=== PATIENT | male | born 1970 | race Caucasian/White ===

== ENCOUNTER 2022-04-29 06:30 | Day surgery (SDC) | payer OTHER ==
[~2022-04-29] VITALS: Ht 188 cm; Wt 134.0 kg
[~2022-04-29 06:30] MED LIST: ALLEGRA-D 24 H1 EACH PO; COZAAR25 MG PO; DEXAMETHASONE4 MG PO; DULOXETINE HCL60 MG PO; EFFEXOR XR37.5 MG PO; GABAPENTIN300 MG PO; HYDROCHLOROTHIA25 MG PO; LIPITOR20 MG PO; OMEPRAZOLE20 MG PO; PERCOCET 5-3251 EACH PO; SUDOGEST60 MG PO
--- NOTE | 2022-04-30 08:21 | OR ---
[facility] [address], [place] [address] Signed DATE OF OPERATION: 04/29/2022 SURGEON: Boo Phelps MD PREOPERATIVE DIAGNOSIS: Colon screening. POSTOPERATIVE DIAGNOSES: 1. Sigmoid diverticulosis and colonic wall edema of right colon and rectum. 2. Internal hemorrhoids and external hemorrhoids. 3. Thrombosed external hemorrhoid. PROCEDURE: Total colonoscopy to cecum with biopsies. ANESTHESIA: Intravenous sedation; fentanyl 100 mcg and Versed 6 mg. INDICATION: This 52-year-old white man is a patient of GABBY Goodwin. He is here for screening colonoscopy. He denies symptoms of bleeding, diarrhea, or constipation. He has no family history of colon cancer. He understands the risks and benefits of colonoscopy including the risk of bleeding, infection, perforation, and so forth and wished to proceed. FINDINGS: The prep was good. Complete colonoscopy was undertaken to the cecum without question. He had scattered diverticula of the sigmoid colon. He had internal hemorrhoids as well as external hemorrhoids and one of the external hemorrhoids had thrombosis but not severely inflamed. DESCRIPTION OF PROCEDURE: The patient was brought to the endoscopy suite and placed in the lateral decubitus position, given intravenous sedation to the point of slurred speech and nystagmus with full cardiopulmonary monitoring. Digital rectal examination detected a firm nodule within the anal canal. The scope was advanced into the rectum and ultimately to the cecum. Ileocecal valve and appendiceal orifice were normal. Scope was withdrawn and examination throughout showed no sign of abnormality other than sigmoid diverticula. Retroflexed view of the rectum showed internal hemorrhoids. Careful withdrawal of the scope through the anal canal did confirm an external hemorrhoid with thrombosis, no Electronically Signed By: BOO PHELPS MD 04/30/22 0821 PATIENT NAME: ANALI MAE OPERATIVE REPORT DATE OF : 74 REPORT #: [id number] PHYSICIAN: BOO PHELPS MD PCP: ARACELI LOPEZ PA-C REPORT IS CONFIDENTIAL AND NOT TO BE RELEASED WITHOUT AUTHORIZATION [facility] [address], [place] [address] Signed doubt accounting for the physical exam. The scope was removed and the patient was taken to the recovery room in good condition. CONCLUDING DIAGNOSES: 1. Diverticular changes and mild edema of the colon (biopsied). 2. Internal and external hemorrhoids, one external hemorrhoid thrombosed, appears uninflamed currently. PLAN: For the short term, would recommend hot soaks of the anorectum to allow clearance of the external thrombosis as it is likely past time for which a thrombectomy could be undertaken. Recommend high-fiber diet. Repeat colonoscopy in 10 years, sooner if clinically indicated. He will return to the ongoing care of PA. Buddy MD MIKE Collier/NEREYDA /[id number] cc: Araceli Lopez PA-C Copies: ARACELI LOPEZ PA-C ~ Electronically Signed By: BOO PHELPS MD 04/30/22 0821 PATIENT NAME: ANALI MAE MELINA OPERATIVE REPORT DATE OF : 74 REPORT #: [id number] PHYSICIAN: BOO PHELPS MD PCP: ARACELI LOPEZ PA-C REPORT IS CONFIDENTIAL AND NOT TO BE RELEASED WITHOUT AUTHORIZATION
--- NOTE | 2022-05-02 10:34 | PATH ---
[facility] [address] [place], [place] [address] Signed SPECIMEN(S): A RIGHT COLON BIOPSY SPECIMEN(S): B SIGMOID COLON BIOPSY SPECIMEN(S): C RECTAL BIOPSY SPECIMEN SOURCE: A. RIGHT COLON BIOPSY B. SIGMOID COLON BIOPSY C. RECTAL BIOPSY CLINICAL HISTORY: Screening colonoscopy, edema of colon wall, hemorrhoids. FINAL PATHOLOGIC DIAGNOSIS: A. Colon, right, biopsies: - No significant histopathology. B. Colon, sigmoid, biopsies: - No significant histopathology. C. Rectum, biopsy: - Mucosal xanthomas. COMMENT: Regarding specimens A and B, the sections from the specimen contain architecturally normal colonic mucosa without crypt distortion. There is no acute or chronic inflammation. There is no evidence of microscopic colitis. There are no abnormal organisms or infiltrates. There are no polyps or neoplasms. Regarding specimen C, mucosal xanthomas consist of collections of macrophages in the lamina propria. They often contain mucin. These are nonspecific markers of old injury. In the rectum, there may have been previous areas of inflammation or prolapse. TWK:caw:C2NR MICROSCOPIC EXAMINATION: Histologic sections of all submitted blocks are examined by light microscopy. These findings, together with the gross examination, support the pathologic diagnosis. GROSS DESCRIPTION: Three specimens are received in three containers, labeled "RL." A. The specimen, labeled "RL, 1," and designated on the requisition "right colon biopsy," is received in formalin and consists of three rosario soft tissue PATIENT NAME: ANALI MAE MELINA PATHOLOGY DATE OF : 74 REPORT #: [id number] PHYSICIAN: ROJELIOStevia First PRESTON PCP: MAMADOU LEA PA-C REPORT IS CONFIDENTIAL AND NOT TO BE RELEASED WITHOUT AUTHORIZATION [facility] [address] [place], [place] [address] Signed fragments that measure 0.2-0.4 cm in greatest dimension. The specimen is entirely submitted in cassette (A1). B. The specimen, labeled "RL, 2," and designated on the requisition "sigmoid biopsies," is received in formalin and consists of two rosario soft tissue fragments that measure 0.3 and 0.4 cm in greatest dimension. The specimen is entirely submitted in cassette (B1). C. The specimen, labeled "RL, 3," and designated on the requisition "rectum biopsy," is received in formalin and consists of two rosario soft tissue fragments that measure 0.1 and 0.3 cm in greatest dimension. The specimen is entirely submitted in cassette (C1). AI (under the direct supervision of a pathologist) The Gross Description was prepared using a voice recognition system. The report was reviewed for accuracy; however, sound-alike word errors, addition and/or deletions may occur. If there is any question about this report, please contact Client Services. PERFORMING LABORATORY: The technical component was performed by [facility], [address] [place] [id number] (CLIA# [id number]). The professional interpretation was performed by [facility], [facility], [address] [place] [address] (CLIA#: [id number]). Diagnostician: Ruddy Oropeza MD Pathologist Electronically Signed 05/02/2022 Copies: ~ PATIENT NAME: ANALI MAE PATHOLOGY DATE OF : 74 REPORT #: [id number] PHYSICIAN: [facility] PCP: MAMADOU LEA PA-C REPORT IS CONFIDENTIAL AND NOT TO BE RELEASED WITHOUT AUTHORIZATION
== END 2022-04-29 09:10 | disposition home or self-care (01) ==
LOC: OPS 06:30 → DS 06:30 → OPS 07:30
PROVIDERS: ATTEND Surgery
PROC: 0DBN8ZX Excision of Sigmoid Colon, Via Natural or Artificial Opening Endoscopic, Diagnostic (ICD-10-PCS; 2022-04-29)
PROC: 0DBP8ZX Excision of Rectum, Via Natural or Artificial Opening Endoscopic, Diagnostic (ICD-10-PCS; 2022-04-29)
PROC: 0DBK8ZX Excision of Ascending Colon, Via Natural or Artificial Opening Endoscopic, Diagnostic (ICD-10-PCS; principal; 2022-04-29 07:30)
DX: Z12.11 Encounter for screening for malignant neoplasm of colon (principal); E66.9 Obesity, unspecified; Z68.36 Body mass index [BMI] 36.0-36.9, adult; K64.4 Residual hemorrhoidal skin tags; F43.10 Post-traumatic stress disorder, unspecified; K80.50 Calculus of bile duct without cholangitis or cholecystitis without obstruction; K21.9 Gastro-esophageal reflux disease without esophagitis; I10 Essential (primary) hypertension; Z88.8 Allergy status to other drugs, medicaments and biological substances; K57.30 Diverticulosis of large intestine without perforation or abscess without bleeding; K64.8 Other hemorrhoids; K64.5 Perianal venous thrombosis; E75.5 Other lipid storage disorders
CPT/HCPCS: 88305; 99153; G0500; J2250; J3010; J7121

== ENCOUNTER 2022-08-15 01:08 | Emergency (ER) | payer OTHER ==
[~2022-08-15] VITALS: Ht 188 cm; Wt 134.0 kg
--- OUTSIDE RECORDS SUMMARY | 2022-08-15 01:10 | XMS ---
PreManage Notification: ANALI MAE Security Film Reproducer Events No recent Security Events currently on file CRITERIA MET - [facility] PROVIDERS MAMADOU LEA Physician Counter Top Assembler Current PHONE: [phone] Alex has no Care Guidelines for this patient. [place] VISIT COUNT (12 MO.) 1 JEB Starkey TOTAL 1 NOTE: Visits indicate total known visits. ED/UCC VISIT TRACKING (12 MO.) 08/15/2022 01:08 JEB Hong [place] TYPE: Emergency COMPLAINT: - SOB INPATIENT VISIT TRACKING (12 MO.) No inpatient visits to display in this time frame [email or web address]
[2022-08-15] MEDS ORDERED: BUPROPION XL300 MG PO (01:38)
--- NOTE | 2022-08-16 17:24 | EKG ---
[facility] [address] [facility] [place] [address] Signed Normal sinus rhythm T wave abnormality, consider lateral ischemia Abnormal ECG No previous ECGs available Confirmed by NEHEMIAH LOUIS MD ([id number]) on 08/16/2022 5:24:11 PM Electronically Signed By: NEHEMIAH LOUIS MD 08/16/22 1724 PATIENT NAME: ANALI MAE Electrocardiogram DATE OF : 74 PHYSICIAN: NEHEMIAH LOUIS MD REPORT #: [id number] REPORT IS CONFIDENTIAL AND NOT TO BE RELEASED WITHOUT AUTHORIZATION
== END 2022-08-15 02:55 | disposition home or self-care (01) ==
LOC: ED 01:08
DX: R06.00 Dyspnea, unspecified (principal); I10 Essential (primary) hypertension; K21.9 Gastro-esophageal reflux disease without esophagitis; Z88.5 Allergy status to narcotic agent; Z79.899 Other long term (current) drug therapy
CPT/HCPCS: 36415; 71046; 80053; 83880; 84484; 85025; 85379; 93005; 93010; 99285-25